=== PATIENT | male | born 1975 | race Caucasian/White ===

== ENCOUNTER 2019-06-22 08:55 | Emergency (ER) | payer OTHER, SELFPAY ==
[2019-06-22 08:58] VITALS: BP 124/81; PULSE 78; RESP 16; TEMP 36.6; O2SAT 96; BMI 25.0
--- NOTE | 2019-06-22 09:01 | W.ED.UPPEXIN ---
HPI - Extremity Injury (Upper) General: Chief Complaint: Extremity Injury, Upper Stated Complaint: left hand pain Time Seen by Provider: 06/22/19 09:00 Source: patient Mode of arrival: ambulatory Limitations: no limitations History of Present Illness: HPI narrative: Patient is a 43-year-old male who presents to ED today with complaints of a left middle finger laceration that was sustained after working with a saw at work complaint: injury to: finger Onset (ago): minute(s) Other Extremity Injury: Left: fingers Other injuries: none Handedness: right Place: work Severity: moderate Relieving factors: none Exacerbating factors: movement of extremity Context: laceration (saw) Associated symptoms: Reports no associated symptoms Review of Systems Musc: Reports: extremity pain (L middle finger) Skin/Breast: Reports: other (lac to L middle finger) PFSH ED PFSH: Statuses (acute, chronic, etc) shown below reflect problem list status as previously entered and may not be historically accurate Social History Smoking and tobacco status: current every day smoker Physical Exam Const: COMMON NORMALS: no apparent distress, average body habitus, oriented x3, healthy appearing, alert and well nourished Extremity: OTHER: Patient has a very irregular jagged laceration to the dorsal surface overlying his left middle distal phalanx; there is no nail involvement; there is tissue loss; distal phalanx naturally falls to mild flexion indicating probable extensor tendon damage Neuro: COMMON NORMALS: oriented x3 SENSORIUM/ORIENTATION: Yes alert Procedures Laceration Laceration 1: Site: other (L middle finger) Side (If applicable): left Size (cm): 1.5 Description: irregular Depth: involves tendon Local Anesthetic: lidocaine 1% Amount of anesthesia used (mL): 3 Pre-repair: irrigated extensively Skin layer closed with: nylon Size (cm): 5-0 Number of sutures: 6 Course Vital Signs: Vital signs: Vital Signs Temperature 97.9 F 06/22/19 08:58 Pulse Rate 78 06/22/19 08:58 Respiratory Rate 16 06/22/19 08:58 Blood Pressure 124/81 06/22/19 08:58 Pulse Oximetry 96 06/22/19 08:58 MDM - Extremity Injury (Upper) MDM Narrative: Medical decision making narrative: Laceration was loosely approximated; x-ray showing comminuted fractures of the DIP joint; on exam he has probable extensor tendon laceration; patient will need to follow-up with Worker's Comp. for referral to a hand surgeon in [place]; he was given a gram of Ancef here and will be placed on antibiotics at home Lab Data: Labs: Lab Results 06/22/19 Range/Units 09:35 Urine Temperature 96 (94-100) Urine Opiates Scre en Negative (Negative) ng/mL U Opiates 300ng/mL cut Negative (Negative) ng/mL Ur Oxycodone Scree n Negative (Negative) ng/mL Urine Methadone Sc reen Negative (Negative) ng/mL Ur Barbiturates Sc reen Negative (Negative) ng/mL U Tricyclic Antide press Negative (Negative) ng/mL Ur Phencyclidine S crn Negative (Negative) ng/mL Ur Amphetamines Sc reen Negative (Negative) ng/mL U Methamphetamines Scrn Negative (Negative) ng/mL Urine MDMA Negative (Negative) ng/mL U Benzodiazepines Scrn Negative (Negative) ng/mL Urine Cocaine Scre en Negative (Negative) ng/mL U Marijuana (THC) Screen Negative (Negative) ng/mL Imaging Data^: L finger: Radiologist's impression: [address] [address] XRay Report Signed Patient: Denny Chavez Unit #: [id number] : 1975 Age/Sex: 43 / M ADM Date: 06/22/19 Loc: ER Room/Bed: Attending Dr: Ordering Provider/Ordering MD: Samanta Alonzo Date of Service: 06/22/19 Procedure(s): XR finger LT min 2V 23111 Accession Number(s): [id number] Report Number: [id number] WS: [id number] LEFT THIRD FINGER 3 VIEW TECHNIQUE: PA, oblique and lateral. HISTORY: trauma; middle COMPARISON: None available. Soft tissue and bony injury involving the distal third finger. Mild widening of the DIP joint with a few small fragments. Fragments are probably from both sides of the joint line. Several small bony fragments. 2.7 mm bone fragment is slightly displaced from the medial middle phalanx head. Extensive soft tissue injury. XR/XR finger LT min 2V 99236 IMPRESSION: 1. Extensive bone and soft tissue injury centered at the DIP joint of the third finger. 2. Several small comminuted fractures involving both sides of the DIP joint and mild diastases of the DIP joint. Dictated By: Stephanie Taveras DO Signed By: Stephanie Taveras DO Signed Date/Time: 06/22/19931 DD/ 8 Discharge Plan Discharge Patient Disposition: Home, Self-Care Clinical Impression: Laceration of left middle finger with tendon involvement Fracture of distal phalanx of finger Qualifiers: Encounter type: initial encounter Finger: middle finger Fracture type: open Fracture alignment: nondisplaced Laterality: left Qualified Code(s): S62.663B - Nondisplaced fracture of distal phalanx of left middle finger, initial encounter for open fracture Condition: Stable Prescriptions: New hydrocodone-acetaminophen 5-325 mg tablet 1 tab PO Q6H PRN (Reason: pain) Qty: 14 RF: 0 Keflex 500 mg capsule 500 mg PO Q6H 7 Days Qty: 28 RF: 0 Discharge Orders: Discharge Order (Routine); Ordered 06/22/19 Ordered By: Samanta Alonzo Patient Instructions: Finger Laceration (ED) Activity Restrictions/Additional Instructions: As discussed you will need to follow-up through Worker's Comp. and they will need to refer you to a hand surgeon in [place] for probable tendon repair. Coding Level of Care Code ED Independent Living Specialist for Almita Noguera
--- NOTE | 2019-06-22 09:05 | XR_ITS ---
WS: [id number] LEFT THIRD FINGER 3 VIEW TECHNIQUE: PA, oblique and lateral. HISTORY: trauma; middle COMPARISON: None available. Soft tissue and bony injury involving the distal third finger. Mild widening of the DIP joint with a few small fragments. Fragments are probably from both sides of the joint line. Several small bony fra gments. 2.7 mm bone fragment is slightly displaced from the medial middle phalanx head. Extensive sof t tissue injury. XR/XR finger LT min 2V 68339 IMPRESSION: 1. Extensive bone and soft tissue injury centered at the DIP joint of the thir d finger. 2. Several small comminuted fractures involving both sides of the DIP joint an d mild diastases of the DIP joint.
[2019-06-22] MEDS: tetanus-diphtheria tox (adult) 0.5 mL SDV IM (09:39)
[2019-06-22 09:52] LABS: Amphetamines Screen Urine Negative (Negative); Barbiturates Screen Urine Negative (Negative); Benzodiazepines Screen Urine Negative (Negative); Cocaine Screen Urine Negative (Negative); Methamphetamines Urine Screen Negative (Negative); Methylenedioxymethamphetamine Negative (Negative); Opiate Screen Urine Negative (Negative); Opiate Urine Negative (Negative); PCP Screen Urine Negative (Negative); THC Screen Urine Negative (Negative); Tricyclic Antidepressants UR Negative (Negative)
[2019-06-22 09:54] LABS: Drug Screen Urine Temp 96 (94-100)
[2019-06-22] MEDS: ceFAZolin 1,000 mg SDV 1000 MG IM (10:06)
[2019-06-22 10:52] VITALS: RESP 16; TEMP 36.6; O2SAT 96
== END 2019-06-22 10:45 | disposition home or self-care (01) ==
PROVIDERS: Dermatology; Emergency Provider Physician Assistant
DX: S62.663B Nondisplaced fracture of distal phalanx of left middle finger, initial encounter for open fracture (principal); S56.424A Laceration of extensor muscle, fascia and tendon of left middle finger at forearm level, initial encounter; W27.0XXA Contact with workbench tool, initial encounter; Y99.0 Civilian activity done for income or pay; F17.210 Nicotine dependence, cigarettes, uncomplicated; Z23 Encounter for immunization
CPT/HCPCS: 12001; 73140; 80305; 90472; 90714; 96372; 99281; J0690

== ENCOUNTER → 2020-03-09 11:34 | Outpatient (BNVA) | payer OTHER, SELFPAY | PROVIDERS: Visit Provider Nurse Practitioner Family | DX: Z11.59 Encounter for screening for other viral diseases (principal) | CPT/HCPCS: 87635 ==

== ENCOUNTER 2024-07-20 19:42 | Inpatient (IN) | payer BC, SELFPAY ==
[2024-07-20 19:53] VITALS: BP 135/98; PULSE 99; RESP 20; TEMP 36.7; O2SAT 97; BMI 21.2
--- NOTE | 2024-07-20 19:59 | ECG_ITS ---
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1975 Requested By: Kimberly Huffman Order Number: [id number] Reading MD: BRII PITTS Measurements Intervals [place] Rate: 99 P: 82 MD: 146 QRS: 94 QRSD: 85 T: 72 QT: 376 QTc: 483 Interpretive Statements SINUS RHYTHM POSSIBLE RIGHT ATRIAL ENLARGEMENT [0.25mV P-WAVE] POSSIBLE LEFT ATRIAL ENLARGEMENT [-0.1mV P-WAVE IN V1/V2] BORDERLINE RIGHT AXIS DEVIATION [QRS AXIS > 90] No previous ECG available for comparison Electronically Signed On 07-23-2024 19:31:46 EMERGENCY DEPARTMENT CLINICIAN by BRII PITTS [email or web address]
--- NOTE | 2024-07-20 20:03 | ED.C_ITS ---
HPI - Psych 2 General: Chief Complaint: Psychiatric Symptoms Stated Complaint: SI Time Seen by Provider: 07/20/24 19:56 History of Present Illness: 48-year-old man who presents emergency r oom with severe paranoia and suicidal thoughts. He says this has been worsening recently. He says he just got a new job and the paranoia is so bad he can hardly go to work. He has been having alternating suicidal thoughts. No specific plan at this time. Related Data Home Medications ?Medication ?Instructions ?Recorded ?Confirmed No Known Home Medications 07/20/2407/09 Allergies Allergy/AdvReac Type Severity Reaction Status Date / Time Penicillins Allergy ALGY-Hives Verified 07/20/24 21:32 Review of Systems 2 Narrative: Constitutional symptoms: Negative except as documented in HPI. Skin symptoms: Negative except as documented in HPI. Eye symptoms: Negative except as documented in HPI. ENMT symptoms: Negative except as documented in HPI. Respiratory symptoms: Negative except as documented in HPI. Cardiovascular symptoms: Negative except as documented in HPI. Gastrointestinal symptoms: Negative except as documented in HPI. Genitourinary symptoms: Negative except as documented in HPI. Musculoskeletal symptoms: Negative except as documented in HPI. Neurologic symptoms: Negative except as documented in HPI. Psychiatric symptoms: Negative except as documented in HPI. Endocrine symptoms: Negative except as documented in HPI. PFSH ED 2 PFSH: Social History Smoking and tobacco/nicotine status: current every day tobacco/nicotine user Physical Exam 2 Narrative: EXAM NARRATIVE: General: Alert, no acute distress. Skin: Warm, dry. Head: Normocephalic, atraumatic. Neck: Supple, trachea midline. Eye: Extraocular movements are intact. Ears, nose, mouth and throat: mucosa moist. Cardiovascular: Regular, Normal peripheral perfusion. Respiratory: Lungs are clear to auscultation, respirations are non-labored, breath sounds are equal, Symmetrical chest wall expansion. Gastrointestinal: Soft, Nontender, Non distended Musculoskeletal: Normal ROM, no deformity. Neurological: Alert and oriented, No focal neurological deficit observed. Psychiatric: Cooperative, appropriate mood & affect. Patient does endorse occasional suicidal thoughts. Course 2 Vital Signs: Vital signs: Vital Signs Temperature 98.1 F 07/20/24 19:53 Pulse Rate 92 07/20/24 21:30 Respiratory Rate 20 H 07/20/24 19:53 Blood Pressure 136/82 07/20/24 21:30 Pulse Oximetry 96 07/20/24 21:30 Oxygen Delivery Me thod Room Air 07/20/24 21:12 [facility] - Psych Medical Decision Making Differential diagnosis: Patient with reported depression and suicidal ideation. concerns for infection, alcohol intoxication, cardiac issues or other medical problems prior to psychiatric admission. Workup: labwork, ekg ordered to evaluate the pathologies and to clear the patient medically prior to psychiatric admission EKG: Time 2048. Rate 99. Normal sinus rhythm, No ST-T changes, no ectopy, normal TX & QRS intervals, This was reviewed and interpreted by myself the ER physician at 2052. Lab Review: Laboratory results were reviewed and interpreted by myself the emergency room physician. - Medically cleared. - EKG shows no ischemic changes. - Blood alcohol level is negative, -Tylenol and salicylate levels are negative. - Drug screen is positive for marijuana - No signs of infection, urinalysis clear and white count is not elevated - No anemia. - BUN and creatinine are within normal limits. Consultation: I spoke with Dr. Cardenas who is on-call for psychiatry who agrees to admission Assessment and plan: Paranoia Suicidal thoughts -Admission to neuropsychiatric unit for continued evaluation and treatment. - All lab work was reviewed and interpreted personally by myself, the ER physician - Evaluation and treatment of this problem were appropriate in the emergency setting Lab Data 07/20/24 20:34 07/20/24 20:34 Laboratory Results WBC 9.62 10^3/uL (3.29-11.43) 07/20/24 20:34 RBC 4.45 10^6/uL (3.85-5.65) 07/20/24 20:34 Hgb 14.30 g/dL (11.27-16.99) 07/20/24 20:34 Hct 42.7 % (37-53) 07/20/24 20:34 MCV 96.0 fl (82-101) 07/20/24 20:34 MCH 32.1 pg (27-33) 07/20/24 20: MCHC 33.5 g/dL (30-55) 07/20/24 20: RDW 13.2 % (12.1-15.1) 07/20/24 20:34 Plt Count 255 10^3/cmm (157-399) 07/20/24: MPV 10.4 fL (7.4-10.4) 07/20/24: Neut % (Auto) 60.1 % 07/20/24: Lymph % (Auto) 31.5 % 07/20/24: Desha % (Auto) 6.3 % 07/20/24: Eos % (Auto) 1.2 % 07/20/24: Baso % (Auto) 0.7 % 07/20/24: Neut # (Auto) 5.77 10^3/uL (1.8-7.7) 07/20/24: Lymph # (Auto) 3.0 10^3/uL (0.8-4.8) 07/20/24: Desha # (Auto) 0.6 10^3/uL (0.2-0.9) 07/20/24: Eos # (Auto) 0.1 10^3/uL (0.0-0.8) 07/20/24: Baso # (Auto) 0.1 10^3/uL (0.0-0.1) 07/20/24: Nucleated RBC % (auto) 0 % 07/20/24: Nucleated RBCs # 0.0 /100WBC 07/20/24:34 Sodium 141 mmol/L (136-145) 07/20/24: Potassium 3.9 mmol/L (3.5-5.1) 07/20/24: Chloride 104 mmol/L (98-107) 07/20/24: Carbon Dioxide 24 mmol/L (22-29) 07/20/24: Anion Gap 16.9 (5-19) 07/20/24: BUN 13 mg/dL (6-20) 07/20/24: Creatinine 0.9 mg/dL (0.7-1.2) 07/20/24 20:34 GFR Calculation 90.8 mL/min (90-130) 07/20/24: Glucose 194 mg/dL (65-115) H 07/20/24: Calculated Osmolality 297 mOsm/kg (285-295) H 02/12/25 20:34 Calcium 9.0 mg/dL (8.5-10.5) 07/20/24 20:34 Total Bilirubin 0.2 mg/dL (0.15-1.2) 07/20/24 20: AST 44 U/L (0-40) H 07/20/24 20:34 ALT 32 U/L (0-41) 07/20/24 20: Alkaline Phosphatase 85 U/L (40-130) 07/20/24 20: Total Protein 6.7 g/dL (6.6-8.7) 07/20/24: Albumin 4.0 g/dL (3.5-5.2) 07/20/24: Globulin 2.7 g/dL (1.3-4.6) 07/20/24: TSH 1.17 uIU/mL (0.27-4.20) 07/20/24 20:34 Urine Color Yellow (Yellow) 07/20/24 20: Urine Appearance Clear (CLEAR) 07/20/24 20: Urine pH 6.5 (5-7) 07/20/24 20: Ur Specific [place] 1.017 (1.005-1.030) 07/20/24 20: Urine Protein Negative (Negative) 07/20/24 20: Urine Glucose (UA) Negative (Normal) 07/20/24 20: Urine Ketones Negative (Negative) 07/20/24 20: Urine Blood Negative (Negative) 07/20/24 20: Urine Nitrate Negative (Negative) 07/20/24 20: Urine Bilirubin Negative (Negative) 07/20/24 20: Urine Urobilinogen 1.0 mg/dL (Negative) 07/20/24 20: Ur Leukocyte Esterase Negative (Negative) 07/20/24 20: Urine RBC 0-2 /hpf (0-2) 07/20/24 20:07 Urine WBC 0-5 /hpf (0-5) 07/20/24 20:07 Ur Squamous Epith Cells 0-5 /hpf (0-5) 07/20/24 20:07 Amorphous Sediment Not Reportable 07/20/24 20:07 Urine Bacteria None seen /hpf (NONE) 07/20/24 20: Hyaline Casts 0-4 /lpf H 07/20/24 20:07 Salicylates < 0.3 mg/dL (3-10) L 07/20/24 20:34 Urine Opiates Screen Negative ng/mL (Negative) 07/20/24 20:07 Acetaminophen < 5.0 ug/mL (10-30) L 07/20/24 20:34 Ur Barbiturates Screen Negative ng/mL (Negative) 07/20/24 20:07 Ur Phencyclidine Scrn Negative ng/mL (Negative) 07/20/24 20:07 Ur Amphetamines Screen Negative ng/mL (Negative) 07/20/24 20:07 U Benzodiazepines Scrn Negative ng/mL (Negative) 07/20/24 20:07 Urine Cocaine Screen Negative ng/mL (Negative) 07/20/24 20:07 U Marijuana (THC) Screen Positive ng/mL (Negative) H 07/20/24 20:07 Ethyl Alcohol < 10 mg/dL (0-10) 07/20/24 20:34 No radiology studies performed this visit Discharge Plan Discharge Patient Disposition: Admitted As Inpatient Admit Provider: Carlos Chapman Clinical Impression: Suicidal ideation, Paranoia Condition: Stable Coding Level of Care Code ED Archivist for Almita Noguera
[2024-07-20 20:17] LABS: Bilirubin Urine Negative (Negative); Blood Urine Negative (Negative); Glucose Urine UA Negative (Normal); Ketones Urine Negative (Negative); Leukocyte Esterase Urine Negative (Negative); Nitrate Urine Negative (Negative); Protein Urine Negative (Negative); Specific Gravity, Urine 1.017 (1.005-1.030); Urine Appearance Clear (CLEAR); Urine Color Yellow (Yellow); pH Urine 6.5 (5-7)
[2024-07-20 20:22] LABS: Bacteria Urine None Seen /hpf; Hyaline Casts Urine 0-4 /lpf; RBC Urine 0-2 /hpf (0-2); Squamous Epithelial Cell Urine 0-5 /hpf (0-5); WBC Urine 0-5 /hpf (0-5)
[2024-07-20 20:25] LABS: Amphetamines Screen Urine Negative (Negative); Barbiturates Screen Urine Negative (Negative); Benzodiazepines Screen Urine Negative (Negative); Cocaine Screen Urine Negative (Negative); Opiate Screen Urine Negative (Negative); PCP Screen Urine Negative (Negative); THC Screen Urine Positive (Negative)
[2024-07-20 20:50] LABS: Basophils # 0.1 10^3/uL (0.0-0.1); Basophils % 0.7 %; Eosinophils # 0.1 10^3/uL (0.0-0.8); Eosinophils % 1.2 %; Hematocrit 42.7 % (37-53); Lymphocytes % 31.5 %; Mean Corpuscular HGB Conc 33.5 g/dL (30-55); Mean Corpuscular Hemoglobin 32.1 pg (27-33); Mean Platelet Volume 10.4 fL (7.4-10.4); Monocytes # 0.6 10^3/uL (0.2-0.9); Monocytes % 6.3 %; Neutrophils # 5.77 10^3/uL (1.8-7.7); Neutrophils % 60.1 %; Nucleated Red Blood Cells % 0 %; Platelet Count 255 10^3/cmm (157-399); Red Blood Count 4.45 10^6/uL (3.85-5.65); Red Cell Distribution Width 13.2 % (12.1-15.1); White Blood Count 9.62 10^3/uL (3.29-11.43)
--- NOTE | 2024-07-20 21:08 | PC.NURSE ---
Patient report called to ANNABEL Alvarez in NPU. All questions and concerns were addressed at time of report.
[2024-07-20 21:12] VITALS: BP 136/82; PULSE 92; O2SAT 96
[2024-07-20 21:18] LABS: Acetaminophen < 5.0 ug/mL (10-30); Alanine Aminotransferase 32 U/L (0-41); Alcohol Level < 10 mg/dL (0-10); Alkaline Phosphatase 85 U/L (40-130); Anion Gap 16.9 (5-19); Aspartate Amino Transferase 44 U/L (0-40); Blood Urea Nitrogen 13 mg/dL (6-20); Carbon Dioxide 24 mmol/L (22-29); Chloride 104 mmol/L (98-107); Creatinine Clr Calc Pharmacy 87.2169; Globulin 2.7 g/dL (1.3-4.6); Glomerular Filtration Rate 90.8 mL/min (90-130); Glucose 194 mg/dL (65-115); Osmolality Calculated 297 mOsm/kg (285-295); Potassium 3.9 mmol/L (3.5-5.1); Salicylate < 0.3 mg/dL (3-10); Sodium 141 mmol/L (136-145); Thyroid Stimulating Hormone 1.17 uIU/mL (0.27-4.20); Total Bilirubin 0.2 mg/dL (0.15-1.2); Total Protein 6.7 g/dL (6.6-8.7)
[2024-07-20 21:30] VITALS: BP 136/82; PULSE 92; O2SAT 96
[2024-07-20 21:33] VITALS: BP 145/88; PULSE 86; RESP 18; TEMP 36.4; O2SAT 98
[2024-07-20 22:00] VITALS: BP 145/88; PULSE 86; RESP 18; TEMP 36.4; O2SAT 98
[2024-07-20] MEDS: hyDROXYzine 25 mg Capsule 50 MG PO (22:21)
[2024-07-20] MEDS: nicotine 4 mg lozenge MUCOUS MEM (22:21)
--- NOTE | 2024-07-20 22:51 | PC.ADMIT ---
NO [id number] Deirdre Solorio Admission Note: The patient,Denny Chavez,48 y/o, was given written information regarding hospital policies, unit procedures and contact persons. Patient's smoking status: current every day smoker. Vital Signs - 8 hr 07/20/24 19:53 07/20/24 21:12 07/20/24 21:30 Temperature 98.1 F Pulse Rate 99 92 92 Respiratory Rate 20 H Blood Pressure 135/98 136/82 136/82 Pulse Oximetry 97 96 96 Oxygen Delivery Method Room Air Room Air 07/20/24 21:33 07/20/24 21:34 07/20/24 22:00 Temperature 97.5 F L 97.5 F L Pulse Rate 86 86 Respiratory Rate 18 18 Blood Pressure 145/88 145/88 Pulse Oximetry 98 98 Oxygen Delivery Method Room Air Room Air Room Air ADMITTED FROM [facility] ER AT 2130 VIA WHEELCHAIR, SECURITY AND ER STAFF ON A 96 HOUR INVOLUNTARY HOLD THAT ENDS ON 07/26/24@ 1945. PT IS OBSERVED TO HAVE POOR HYGIENE AND UNKEPT. PT ENDORSES HEARING VOICES WHILE I'M IN MY HOUSE. PT STATES HE IS HERE DUE TO STRESSED OUT, PARANOID, CAMERAS IN MY HOUSE AND MY GIRLFRIEND TELLING ME I'M CRAZY. PT STATES HE IS ALLERGIC TO PCN AND TAKES NO HOME MEDICATIONS. PT VOICES HAVING FEELINGS OF PARNOIA, PEOPLE WATHCING HIM AND FEELING LIKE PEOPLE ARE AFTER HIM. STATES HE HAS FEELINGS ON NOT WANTING TO BE HERE ANYMORE, BUT DENIES SI/HI AT THIS TIME. UDS + FOR THC. PT REPORTS DRINKING FOR OVER 40 YEARS AND STATES MY DAD USE TO PUT ALOCOHOL IN MY BOTTLE, PT STATES HE STOPPED DRINKING 7 MONTHS AGO BUT HAS BEEN SICK SINCE QUITTING. PT STATES HE HAS BEEN IN THE NPU BEFORE BUT IT WAS MANY YEARS AGO. PT ORIENTATED TO UNIT. ALL QUESTIONS ANSWERED AND SUPPORT VOICED. DENIES PAIN.
[2024-07-21 06:00] VITALS: BP 141/91; PULSE 98; RESP 18; TEMP 36.9; O2SAT 96
[2024-07-21] MEDS: nicotine 4 mg lozenge MUCOUS MEM ×2 (08:17→21:20)
[2024-07-21 14:00] VITALS: BP 128/94; PULSE 88; RESP 16; TEMP 36.8; O2SAT 98
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
[2024-07-21 20:59] VITALS: BP 135/94; PULSE 80; RESP 18; TEMP 36.3; O2SAT 96
[2024-07-22 06:00] VITALS: BP 149/103; PULSE 84; RESP 18; TEMP 36.6; O2SAT 95
[2024-07-22] MEDS: nicotine 4 mg lozenge MUCOUS MEM ×2 (06:03→17:36)
--- NOTE | 2024-07-22 07:55 | XR_ITS ---
WS: [id number] XR hand RT min 3V* [id number] REASON FOR EXAM: swelling. and pain FINDINGS: No fracture or focal bone lesion. No bone erosion or periosteal reaction. The joint spaces of the hand are intact and well preserved. XR/XR hand RT min 3V* [id number] IMPRESSION: No significant bone or joint abnormality.
[2024-07-22] MEDS: ARIPiprazole 10 mg Tablet 5 MG PO (08:06)
[2024-07-22] MEDS: multivitamin therapeutic Tablet 1 TAB PO (08:06)
[2024-07-22] MEDS: folic acid 1 mg Tablet PO (08:06)
[2024-07-22] MEDS: thiamine 100 mg Tablet PO (08:06)
[2024-07-22] MEDS: LORazepam 2 mg Tablet PO ×2 (08:23→20:41)
[2024-07-22 14:00] VITALS: BP 153/101; PULSE 84; RESP 16; TEMP 36.6; O2SAT 97
--- NOTE | 2024-07-22 15:34 | P.NPUPN_ITS ---
Subjective NPU 2 Subjective: 48-year-old male with a history of alcoh ol dependence and recent onset of increased paranoia and psychosis admitted with suicidal and homicidal ideation. The patient had appeared to have some alcohol related withdrawal symptoms requiring the use of Ativan with some relief. Patient had continued to report feeling paranoid and continuing to report having problems with feeling as if other people at implanted cameras inside his house. He had reported having continued distrust of others. He had stated that he did not like being with other people and was isolative most of the day in his room. Mental Status Exam 2 MSE Comments: Patient is healthy white male with a disheveled appearance and fair eye contact on interview. There was continued evidence of mild psychomotor agitation during the interview. There is no evidence of any abnormal involuntary motor movements, tics, or tremors appreciated. His speech was less productive with decreased rate and diminished volume. His mood was described as frustrated. His affect remained irritable. He denied any homicidal or suicidal ideation on interview. He did report having significant angry thoughts. He had expressed significant paranoia including the belief that his house was bugged. There was some evidence of ideas of reference. He did not appear to be responding to internal stimuli. He denied any auditory or visual hallucinations. He was alert and oriented person place time and situation. His recent and remote memory appeared grossly intact. His insight is poor. His judgment is poor. His impulse control appeared limited. Vitals/I&O/Wt Last Vital Signs Temp 97.8 F 07/22/24 14:00 Pulse 84 07/22/24 14:00 Resp 16 07/22/24 14:00 BP 153/101 07/22/24 14:00 Pulse Ox 97 07/22/24 14:00 O2 Del Method Room Air 07/22/24 14:00 Weight last 48 hrs Weight 58.06 kg Data NPU 07/20/24 20:34 07/20/24 20:34 A&P Assessment and plan (1) Unspecified psychosis: (2) Paranoia: (3) Suicidal ideation: Plan 48-year-old male with a clear history of alcohol dependence currently sober for 9 months reporting increased paranoia and increased irritability with family history of bipolar disorder admitted involuntarily due to increased agitation. #1.? Engage patient in individual milieu and group therapy. #2?? Recommend sober living treatment at the highest level of care to which the patient is willing to commit #3???Started abilify 5mg daily with titration upward to target psychosis. Add norvasc for hypertension 5mg daily. #4?? TO-15 minute checks? #5?? Will attempt to gather collateral information PDMP PDMP Reviewed: Not Reviewed Involuntary Hold Information 2 96 Hour Hold: 96 Hour Involuntary Admission: Yes 96 Hour Hold Ending Date: 07/26/24 96 Hour Hold Ending Time: 19:45 Other Hold: Hold End Date: 07/27/24 Attestations NPU 2 Medical Necessity Statement*: Inpatient hospitalization is medically necessary and deemed to ?be ?the clinically appropriate intervention ?at this time.? We will monitor/initiate medications and make changes as indicated.? The patient?s likely length of stay 3-5 days. Coding Level of Care Code Acute Code for Chg Fwd Diagnoses Unspecified psychosis F29 Paranoia F22 Suicidal ideation R45.851
[2024-07-22] MEDS: amlodipine 5 mg Tablet PO (16:01)
[2024-07-22 20:27] VITALS: BP 120/77; PULSE 110; RESP 17; TEMP 36.6; O2SAT 98
--- NOTE | 2024-07-22 23:46 | PC.NURSE ---
This nurse did her assessment and patient was in the dayroom rocking back and forth and rubbing his hands together. He says he is hearing things but does not know what the voices and noises are. They sound mumbled. He feels anxious but does not know why he feels that way. Ativan 2 mg PO was given.
--- NOTE | 2024-07-23 01:33 | PC.NURSE ---
this nurse assumed care of pt at 0100. pt made a lap in the hallway at approx 115 but did not approach nurses station. pt returned to his room.
--- NOTE | 2024-07-23 03:03 | PC.NURSE ---
pt up pt up in hallway asking for drink/ snack at this time. provided and pt went back to pt room.
[2024-07-23 06:24] VITALS: BP 110/75; PULSE 116; RESP 17; TEMP 36.6; O2SAT 97
[2024-07-23 08:00] VITALS: BP 134/79; PULSE 116; RESP 16; TEMP 36.6; O2SAT 97
[2024-07-23] MEDS: thiamine 100 mg Tablet PO (08:31)
[2024-07-23] MEDS: multivitamin therapeutic Tablet 1 TAB PO (08:31)
[2024-07-23] MEDS: folic acid 1 mg Tablet PO (08:31)
[2024-07-23] MEDS: ARIPiprazole 10 mg Tablet PO (08:31)
[2024-07-23] MEDS: amlodipine 5 mg Tablet PO (08:44)
--- NOTE | 2024-07-23 10:32 | P.NPUPN_ITS ---
Subjective NPU 2 Subjective: 48-year-old male with a history of alcoh ol dependence and recent onset of increased paranoia and psychosis admitted with suicidal and homicidal ideation. The patient continued to report difficulties with trusting others. He reported struggles with managing anger. He had reported that he had been feeling better today. He had complained of headaches. He had complaints of blood in his stool from straining. He had reported no side effects from his Abilify. He had continued to report being uncertain as to whether his house was being bugged by others and reported that he chronically felt as if others were messing with him at work. Mental Status Exam 2 MSE Comments: Patient is healthy, white male with a disheveled appearance and fair eye contact on interview. There was continued evidence of mild psychomotor agitation during the interview. There is no evidence of any abnormal involuntary motor movements, tics, or tremors appreciated. His speech was less productive with decreased rate and diminished volume. His mood was described as allright. His affect was less irritable. He denied any homicidal or suicidal ideation on interview. He did report having significant angry thoughts. He had expressed significant paranoia including the belief that his house was bugged. There was some evidence of ideas of reference. He did not appear to be responding to internal stimuli. He denied any auditory or visual hallucinations. He was alert and oriented person, place, time and situation. His recent and remote memory appeared grossly intact. His insight is poor. His judgment is poor. His impulse control appeared limited. Vitals/I&O/Wt Last Vital Signs Temp 97.8 F 07/23/24 08:00 Pulse 116 H 07/23/24 08:00 Resp 16 07/23/24 08:00 BP 134/79 07/23/24 08:00 Pulse Ox 97 07/23/24 08:00 O2 Del Method Room Air 07/23/24 08:00 Data NPU 07/20/24 20:34 07/20/24 20:34 A&P Assessment and plan (1) Unspecified psychosis: (2) Paranoia: (3) Suicidal ideation: Plan 48-year-old male with a clear history of alcohol dependence currently sober for 9 months reporting increased paranoia and increased irritability with family history of bipolar disorder admitted involuntarily due to increased agitation. #1.? Engage patient in individual milieu and group therapy. #2?? Recommend sober living treatment at the highest level of care to which the patient is willing to commit #3??Continue Abilify 10mg daily to target paranoia and agitation. Appears improved. Norvasc 5mg daily. #4?? TO-15 minute checks? #5?? Will attempt to gather collateral information PDMP PDMP Reviewed: Not Reviewed Involuntary Hold Information 2 96 Hour Hold: 96 Hour Involuntary Admission: Yes 96 Hour Hold Ending Date: 07/26/24 96 Hour Hold Ending Time: 19:45 Other Hold: Hold End Date: 07/27/24 Attestations NPU 2 Medical Necessity Statement*: Inpatient hospitalization is medically necessary and deemed to ?be ?the clinically appropriate intervention ?at this time.? We will monitor/initiate medications and make changes as indicated.? The patient?s likely length of stay 3-5 days. Coding Level of Care Code Acute Code for Chg Fwd Diagnoses Unspecified psychosis F29 Paranoia F22 Suicidal ideation R45.851
[2024-07-23 12:00] VITALS: BP 135/74; PULSE 72; RESP 16; TEMP 36.9; O2SAT 98
[2024-07-23] MEDS: nicotine 4 mg lozenge MUCOUS MEM ×2 (13:14→18:07)
[2024-07-23 14:52] VITALS: BP 133/93; PULSE 84; RESP 16; TEMP 36.9; O2SAT 98
[2024-07-23 19:52] VITALS: BP 118/75; PULSE 115; RESP 18; TEMP 37; O2SAT 96
[2024-07-23 23:55] VITALS: BP 119/76; PULSE 104; RESP 17; TEMP 36.7; O2SAT 98
[2024-07-24 04:00] VITALS: BP 139/83; PULSE 86; RESP 18; TEMP 36.6; O2SAT 98
[2024-07-24 08:00] VITALS: BP 124/85; PULSE 80; RESP 16; TEMP 36.8; O2SAT 97
[2024-07-24] MEDS: folic acid 1 mg Tablet PO (08:10)
[2024-07-24] MEDS: multivitamin therapeutic Tablet 1 TAB PO (08:10)
[2024-07-24] MEDS: amlodipine 5 mg Tablet PO (08:10)
[2024-07-24] MEDS: ARIPiprazole 10 mg Tablet PO (08:10)
[2024-07-24] MEDS: thiamine 100 mg Tablet PO (08:10)
[2024-07-24] MEDS: nicotine 4 mg lozenge MUCOUS MEM ×4 (08:10→17:52)
--- NOTE | 2024-07-24 13:54 | P.NPUPN_ITS ---
Subjective NPU 2 Subjective: 48-year-old male with a history of alcoh ol dependence and recent onset of increased paranoia and psychosis admitted with suicidal and homicidal ideation. The patient continued to report some relative paranoia stating that people were tearing up his van. He had stated that he had concerns that others were trying to place water in his engine. He stated that he continued to struggle with getting along with his . He reported that he continued to feel stressed. He had been compliant with medication changes. He had continued to report concern about his house being bugged with cameras and stated that he needed to get home to take care of those things. Mental Status Exam 2 MSE Comments: Patient is healthy, white male with improved hygiene and fair eye contact on interview. There was continued evidence of mild psychomotor agitation during the interview. There is no evidence of any abnormal involuntary motor movements, tics, or tremors appreciated. His speech was productive with improved rate and normal volume. His mood was described as stressed. His affect remained irritable. He denied any homicidal or suicidal ideation on interview. He did report having significant angry thoughts. He had expressed significant paranoia including the belief that his house was bugged. There was some evidence of ideas of reference. He did not appear to be responding to internal stimuli. He denied any auditory or visual hallucinations. He was alert and oriented person, place, time and situation. His recent and remote memory appeared grossly intact. His insight is poor. His judgment is poor. His impulse control appeared limited. Vitals/I&O/Wt Last Vital Signs Temp 98.3 F 07/24/24 08:00 Pulse 80 07/24/24 08:00 Resp 16 07/24/24 08:00 BP 124/85 07/24/24 08:00 Pulse Ox 97 07/24/24 08:00 O2 Del Method Room Air 07/24/24 08:00 Weight last 48 hrs Weight 57.334 kg Data NPU 07/20/24 20:34 07/20/24 20:34 A&P Assessment and plan (1) Unspecified psychosis: (2) Paranoia: (3) Suicidal ideation: Plan 48-year-old male with a clear history of alcohol dependence currently sober for 9 months reporting increased paranoia and increased irritability with family history of bipolar disorder admitted involuntarily due to increased agitation. #1.? Engage patient in individual milieu and group therapy. #2?? Recommend sober living treatment at the highest level of care to which the patient is willing to commit #3??Continue Abilify 10mg daily to target paranoia and agitation. Appears improved but still having paranoia and ideas of reference. Norvasc 5mg daily. #4?? TO-15 minute checks? #5?? Will attempt to gather collateral information PDMP PDMP Reviewed: Not Reviewed Involuntary Hold Information 2 96 Hour Hold: 96 Hour Involuntary Admission: Yes 96 Hour Hold Ending Date: 07/26/24 96 Hour Hold Ending Time: 19:45 Other Hold: Hold End Date: 07/26/24 Attestations NPU 2 Medical Necessity Statement*: Inpatient hospitalization is medically necessary and deemed to ?be ?the clinically appropriate intervention ?at this time.? We will monitor/initiate medications and make changes as indicated.? The patient?s likely length of stay 3-5 days. Coding Level of Care Code Acute Code for Chg Fwd Diagnoses Unspecified psychosis F29 Paranoia F22 Suicidal ideation R45.851
[2024-07-24 22:00] VITALS: BP 108/76; PULSE 110; RESP 17; TEMP 36.4; O2SAT 99
[2024-07-25 06:00] VITALS: BP 106/72; PULSE 109; RESP 17; TEMP 36.7; O2SAT 99
[2024-07-25] MEDS: thiamine 100 mg Tablet PO (08:20)
[2024-07-25] MEDS: amlodipine 5 mg Tablet PO (08:20)
[2024-07-25] MEDS: multivitamin therapeutic Tablet 1 TAB PO (08:20)
[2024-07-25] MEDS: folic acid 1 mg Tablet PO (08:20)
[2024-07-25] MEDS: ARIPiprazole 10 mg Tablet PO (08:20)
[2024-07-25] MEDS: nicotine 4 mg lozenge MUCOUS MEM ×2 (08:20→11:22)
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
[2024-07-25 13:31] VITALS: BP 106/72; PULSE 109; RESP 17; TEMP 36.7; O2SAT 99
[2024-07-25 14:35] VITALS: BP 132/86; PULSE 95; TEMP 36.6; O2SAT 98
== END 2024-07-25 14:50 | disposition home or self-care (01) | DRG 885 ==
LOC: ER 20:56 → NP 21:01
PROVIDERS: Admitting Provider Psychiatry & Neurology Psychiatry; Emergency Provider Emergency Medicine; Visit Provider Psychiatry & Neurology Psychiatry
DX: F29 Unspecified psychosis not due to a substance or known physiological condition (principal); R45.851 Suicidal ideations; F22 Delusional disorders; Z81.8 Family history of other mental and behavioral disorders; F17.210 Nicotine dependence, cigarettes, uncomplicated; F10.21 Alcohol dependence, in remission
CPT/HCPCS: 36415; 73130; 80053; 80306; 80307; 81001; 84443; 85025; 93005; 97150; 97165; 99285

== ENCOUNTER 2024-08-19 13:51 | Outpatient (CLI) | payer BC, MEDICAID, SELFPAY ==
--- NOTE | 2024-08-19 14:03 | MR_ITS ---
WS: [id number] MRI BRAIN WITHOUT CONTRAST HISTORY: HEADACHE COMPARISON: None available. TECHNIQUE: Diffusion imaging, multiplanar T1, T2 and FLAIR imaging obtained. No evidence for acute infarct or hemorrhage. Haque-white matter differentiation is normal. Numerous scattered T2 and FLAIR signal hyperintensities in the periventricular and subcortical white matter involving the frontal, temporal and parietal lobes. No large territory infarct. No hippocampal atrophy. No remote or acute infarcts or volume loss. Ventricles and extra-axial spaces are normal. No inferior displacement of cerebellar tonsils. Mild cerebellar atrophy. The sella turcica and pituitary gland are unremarkable. Dural venous sinuses and [place] demonstrate no abnormality on this unenhanced studies. Paranasal sinuses: Moderate mucoperiosteal thickening in the RIGHT maxillary sinus. Mastoid air cells: Normal. Calvarium and scalp: Intact. MR/MR head wo con* [id number] IMPRESSION: 1. No acute infarct, hemorrhage or mass effect. 2. Moderate small vessel ischemic type changes in the subcortical white matter of the frontal, temporal and parietal lobes. More than expected of this age gr oup. 3. No prior infarct. 4. Mild cerebellar atrophy. 5. Moderate mucoperiosteal thickening in the RIGHT maxillary sinus. No air-flu id levels.
== END 2024-08-19 13:52 | disposition home or self-care (01) ==
PROVIDERS: PCP Physician Assistant; Visit Provider Physician Assistant
DX: R51.9 Headache, unspecified (principal); R93.0 Abnormal findings on diagnostic imaging of skull and head, not elsewhere classified; G31.89 Other specified degenerative diseases of nervous system; J32.0 Chronic maxillary sinusitis
CPT/HCPCS: 70551

== ENCOUNTER → 2024-09-26 11:13 | Outpatient (BNVA) | payer OTHER, SELFPAY | PROVIDERS: PCP Physician Assistant; Visit Provider Nurse Practitioner Psychiatric/Mental Health | DX: F33.2 Major depressive disorder, recurrent severe without psychotic features (principal); F41.1 Generalized anxiety disorder; F10.21 Alcohol dependence, in remission | CPT/HCPCS: 80061; 83036 ==

== ENCOUNTER 2024-09-27 20:00 | Outpatient (CLI) | payer BC, SELFPAY | END 2024-09-27 20:01 | disposition home or self-care (01) | LOC: SLEEP 23:32 | PROVIDERS: PCP Physician Assistant; Visit Provider Internal Medicine | DX: G47.10 Hypersomnia, unspecified (principal); G47.36 Sleep related hypoventilation in conditions classified elsewhere | CPT/HCPCS: 95810 ==

== ENCOUNTER 2025-03-02 13:22 | Outpatient (CLI) | payer MEDICAID, SELFPAY ==
[2024-09-29 15:19] VITALS: BP 132/90; BMI 22.9
--- NOTE | 2025-03-02 13:49 | MR_ITS ---
WS: [id number] MRI BRAIN WITH HIGH-RESOLUTION IMAGING THROUGH THE INTERNAL AUDITORY CANALS WITHOUT AND WITH CONTRAST HISTORY: Bilat hearing loss tinnitus lt ear COMPARISON: 08/19/2024 TECHNIQUE: Multiplanar, multisequence imaging is performed through the brain. Additional 3 mm imaging performed in multiple planes through the internal auditory canal. Postcontrast imaging with 13 ml's of MultiHance. No acute intracranial hemorrhage, midline shift, edema or mass effect. Numerous scattered T2 and FLAIR signal hyperintensities throughout the white matter. No obvious progression as compared to 08/19/2024. No hippocampal atrophy. Ventricles and extra-axial spaces are normal. No inferior displacement of cerebellar tonsils. Clivus and pituitary gland are normal. Internal and external auditory canals: Unremarkable. Cranial nerves VII and VIII complexes: Unremarkable. No enhancement or mass. Cerebellopontine angles: Normal. Paranasal sinuses: Mild mucoperiosteal thickening in the ethmoid sinuses. No air-fluid levels within the sinuses. Mastoid air cells: Normal. Calvarium and scalp: Normal. Visualized [place] and dural venous sinuses demonstrate no abnormality. MR/MR iac's wo/w con* [id number] IMPRESSION: 1. Normal MRI internal auditory canals. No signal abnormality or mass. 2. Normal cerebellopontine angles. 3. Numerous scattered T2 and FLAIR signal hyperintensities within the white ma tter are stable. Differential includes small vessel ischemic disease, hypertens ion, diabetes, smoking and migraines. 4. Mild mucoperiosteal thickening in the ethmoid sinuses.
[2025-03-02] MEDS: gadobenate dimeglumine 20 mL vial IV (14:14)
== END 2025-03-02 13:23 | disposition home or self-care (01) ==
LOC: RAD 13:27
PROVIDERS: PCP Physician Assistant; Visit Provider Specialist
DX: H90.3 Sensorineural hearing loss, bilateral (principal); H93.12 Tinnitus, left ear
CPT/HCPCS: 70553